=== PATIENT | female | born 2005 | race Caucasian/White ===

== ENCOUNTER 2025-05-02 18:35 | Emergency (ER) | payer MEDICAID, SELFPAY ==
[2025-05-02 18:35] VITALS: BMI 32.2
[2025-05-02 18:56] VITALS: BP 118/77; PULSE 90; RESP 18; TEMP 36.9; O2SAT 96
[2025-05-02] MEDS: DEXAMETHASONE SOD PHOS INJ 10 MG/ML VIAL IM (19:32)
[2025-05-02] MEDS: FAMOTIDINE 20 MG TABLET 40 MG PO (19:34)
[2025-05-02 20:07] LABS: Collection Type, Urine Voided
[2025-05-02 20:12] LABS: Bilirubin,Urine Negative (Negative); Blood,Urine Negative (Negative); Clarity,Urine Clear (Clear/Hazy); Color,Urine Lt-Yellow (Lt Yel-Yel); Culture Indicated,Urine Not Indicated; Glucose, Urine Negative (Negative); Ketones,Urine Negative (Negative); Leukocyte Esterase,Urine Positive (Negative); Nitrite,Urine Negative (Negative); PH,Urine 7.0 (5.0-7.0); Protein,Urine Negative (Neg - Trace); RBC,Urine 4 /hpf (0-3); Specific Gravity,Urine 1.011 (1.001-1.035); Squamous Epithelial Cell,Urine 9 /hpf (0-5); Urobilinogen,Urine Negative mg/dL (0.0-1.0); WBC,Urine 7 /hpf (0-5)
--- NOTE | 2025-05-02 20:27 | EDNOTE_ITS ---
ED Allergic Reaction RME/HPI General Chief complaint: Allergic Reaction Stated complaint: ALLERGIC RX , RAH AND ITCHING Time Seen by Provider: 05/02/25 18:38 Arrival date/time: 05/02/25 18:35 This is a case of 20-year-old female with no medical history came in in the emergency room due to generalized rash and itching today after taking ciprofloxacin for urinary tract infection only symptoms is dysuria no hematuria no abdominal pain no flank pain no fever no chills no shortness of breath no throat or facial swelling patient can speak full sentences no drooling of saliva Limitations: no limitations Related Data Previous Rx's ?Medication ?Instructions ?Recorded ibuprofen 600 mg tablet 600 mg PO Q6H #30 tabs 02/10 cephalexin 500 mg capsule 500 mg PO Q8H #30 caps 05/02 diphenhydramine HCl 25 mg capsule 25 mg PO TID PRN all ergic reaction 05/02/25 #20 caps phenazopyridine 200 mg tablet 200 mg PO TID 6 doses #6 tabs 05/02/25 (Pyridium) prednisone 20 mg tablet See Taper PO QDAY 5 days #5 tabs 05/02/25 Allergies Allergy/AdvReac Type Severity Reaction Status Date / Time No Known Allergies Allergy Verified 05/02/25 18:39 Review of Systems Review of Systems Systems Reviewed: All systems reviewed, normal except as documented Constitutional Constitutional: Reports system reviewed and no additional complaints, except as documented and Reports as per HPI ENT Ears, Nose, Mouth, and Throat: Reports system reviewed and no additional complaints, except as documented and Reports as per HPI Cardiovascular Cardiovascular: Reports system reviewed and no additional complaints, except as documented and Reports as per HPI Respiratory Respiratory: Reports system reviewed and no additional complaints, except as documented and Reports as per HPI Genitourinary Genitourinary: Reports system reviewed and no additional complaints, except as documented and Reports as per HPI Musculoskeletal Musculoskeletal: Reports system reviewed and no additional complaints, except as documented and Reports as per HPI Neurologic Neurologic: Reports system reviewed and no additional complaints, except as documented and Reports as per HPI Past Medical History Social History SMOKING STATUS: Never smoker ED Exam General Limitations: Present no limitations General appearance: Present alert, in no apparent distress and other Head Head exam: Present atraumatic, normocephalic and normal inspection Eye Eye exam: Present normal appearance, PERRL and EOMI ENT ENT exam: Present normal exam, normal oropharynx, mucous membranes moist and other (HEENT exam is normal and unremarkable no drooling of saliva no facial or throat swelling patient can speak full sentences) Neck Neck exam: Present normal inspection, full ROM and trachea midline; Absent tenderness, meningismus, lymphadenopathy or thyromegaly Chest Chest inspection: Present normal inspection and symmetric chest wall rise; Absent tenderness Respiratory Respiratory exam: Present normal lung sounds bilaterally; Absent respiratory distress, wheezes, stridor, accessory muscle use or prolonged expiratory phase Cardiovascular Cardiovascular exam: Present regular rate, normal rhythm and normal heart sounds; Absent bradycardia, tachycardia, irregular rhythm, systolic murmur or diastolic murmur Abdominal Exam Abdominal exam: Present soft, normal bowel sounds and other (No CVA tenderness); Absent distention, tenderness, guarding, rebound, rigidity, diminished bowel sounds, hyperactive bowel sounds, hypoactive bowel sounds or organomegaly Extremities Exam Extremities exam: Present normal inspection and full ROM Back Exam Back exam: Present normal inspection and full ROM Neurological Exam Neurological exam: Present alert, oriented X3, CN II-XII intact, normal gait and reflexes normal; Absent motor sensory deficit Psychiatric Psychiatric exam: Present normal affect and normal mood Skin Skin exam: Present warm, dry, intact, normal color and other (Not noted erythematous rash of face neck both upper both lower extremities abdomen back nonblanching no abscess no cellulitis) Course Quality Measures none Orders Category Date Time Status Urinalysis, C/S if Indicated Stat Lab 05/02/25 20:00 Completed Dexamethasone Inj [Decadron Inj] Med 05/02/25 19:13 Discontinued 10 mg IM X1 ONE DiphenhydrAMINE INJ [Benadryl Inj] Med 05/02/25 19:13 Discontinued 25 mg IM X1 ONE Famotidine [Pepcid] Med 05/02/25 19:13 Discontinued 40 mg PO X1 ONE cefTRIAXone [Rocephin] 1,000 mg Med 05/02/25 20:24 Ordered Lidocaine 1% Pf 5 ml [Xylocaine 1% Pf 5 ml] 2.1 ml IM X1 Vital Signs Vital signs: Vital Signs Temperature 98.4 F 05/02/25 18:56 Pulse Rate 90 05/02/25 18:56 Respiratory Rate 18 05/02/25 18:56 Blood Pressure 118/77 05/02/25 18:56 Pulse Oximetry (%) 96 05/02/25 18:56 Oxygen Delivery Method Room Air 05/02/25 18:56 Oxygen saturation is 96% in room air Allergic Reaction MDM Narrative MDM Narrative:: This is a case of 20-year-old female with no medical history came in in the emergency room due to generalized rash and itching today after taking ciprofloxacin for urinary tract infection only symptoms is dysuria no hematuria no abdominal pain no flank pain no fever no chills no shortness of breath no throat or facial swelling patient can speak full sentences no drooling of saliva physical examination patient is awake alert oriented not in distress nontoxic looking well-hydrated well-nourished patient HEENT exam is normal no drooling of saliva patient can speak full sentences no facial or throat swelling patient have generalized erythematous rash on face both upper and both lower extremities chest abdomen and back suggestive of acute allergic reaction no shortness of breath clear breath sounds patient also have dysuria abdominal exam is benign nonsurgical no guarding no rebound no rigidity no CVA tenderness bladder is nondistended nontender urinalysis showed WBC and urine suggestive of urinary tract infection patient was given ceftriaxone IM here in the emergency room and was prescribed cephalexin for UTI and Pyridium patient condition markedly improved patient was advised to stop ciprofloxacin and instead to take the cephalexin to be taken for 10 days patient will follow-up with PCP for reeval uation and to be referred to utilization specialist for allergy testing worsening symptoms recurrence or any emergent concern return precaution in the ER is advised Patient was discharged with comfortable condition walking with stable gait. Patient verbalized no further complains explained diagnosis and answered patient question. Patient is comfortable with the proposed management plan including the need to follow up with his/her primary care physician and any specialist if applicable Discussed patient for any urgent condition or worsening sx, He/She needed to go to emergency room immediately or call 911. Patient acknowledge the responsibility to follow up as instructed and to monitor her/his symptoms. For any persistence of the symptoms for more than 3-5 days return precaution advised. Discussed the result of the test and was given printed discharge instruction Patient data External records reviewed:: [facility] previous records Clinical information provided by:: patient Social determinants that could affect healthcare access:: none Patient has the following chronic illnesses:: None How is presenting disease/condition affected by chronic disease/condition?: no chronic disease Evaluation data The following diagnostics were reviewed and interpreted by me:: lab results Lab and/or radiology exams considered but not ordered:: Reviewed Interpretation Summary: Reviewed Medications / Prescriptions Medications or Prescriptions considered but not ordered:: Given Medication administrations:: Medication Administration History Ceftriaxone Sodium 1,000 mg/ (Lidocaine HCl 2.1 ml) 0 mg IM X1 ONE Stop: 05/02/25 20:25 Discontinued Medications Dexamethasone Sodium Phosphate (Dexamethasone Sod Phos Inj 10 Mg/Ml Vial) 10 mg IM X1 ONE Stop: 05/02/25 19:14 Last Admin: 05/02/25 19:32 Dose: 10 mg Documented By: OA Diphenhydramine HCl (Diphenhydramine Inj 50 Mg/Ml Vial) 25 mg IM X1 ONE Stop: 05/02/25 19:14 Last Admin: 05/02/25 19:34 Dose: 25 mg Documented By: OA Famotidine (Famotidine 20 Mg Tablet) 40 mg PO X1 ONE Stop: 05/02/25 19:14 Last Admin: 05/02/25 19:34 Dose: 40 mg Documented By: OA Given Consultations Consultation(s) initiated? (list below): No Diagnosis Differential Diagnosis allergic reaction: allergic reaction, contact dermatitis and urticaria Most likely diagnosis given after review of the tests above:: Acute allergic reaction urinary tract infection Admission Indicated Admission indicated?: not indicated Explain why admission is indicated or not indicated:: Not indicated Admission Request Was there a request for admission?: No Admission Attestation Admission request attestation: Not indicated Disposition Plan Disposition Plan: Discharge Discharge Attestation Discharge Attestation: The patient and all family members were given an opportunity to ask questions and understood the discharge instructions. Discharge instructions specifically effects, indications for sooner follow up or return to the emergency department, and the expected course of current diagnosis. Patient condition: Stable Discharge Plan Plan Patient Disposition: HOME (Self Care) Patient condition on transfer: Stable Prescriptions/Referrals Prescriptions/Med Rec: New cephalexin 500 mg capsule 500 mg PO Q8H Qty: 30 0RF phenazopyridine [Pyridium] 200 mg tablet 200 mg PO TID 0 Days Qty: 6 0RF prednisone 20 mg tablet See Taper PO QDAY 5 Days Qty: 5 0RF Taper: Prednisone Taper 20 mg DAILY for 2 Days and 0 Hour 10 mg DAILY for 2 Days and 0 Hour 5 mg DAILY for 7 Days and 0 Hour diphenhydramine HCl 25 mg capsule 25 mg PO TID PRN (Reason: allergic reaction) Qty: 20 0RF No Action ibuprofen 600 mg tablet 600 mg PO Q6H Qty: 30 0RF Referrals: Paul Jacobson MD [Primary Care Provider, Family Practice] - In 1 week Problem List Clinical Impression: Acute allergic reaction, Urinary tract infection Patient/Caregiver Discharge Instructions Education Materials: Urinary Tract Infections in Women, ED Medicine Reaction: Allergic Additional Instructions: Follow-up with your primary care physician in 2 days for reevaluation and to be referred to utilization specialist for allergy testing recurrence persistent worsening symptoms or any emergent concern call 911 or go to the nearest emergency room stop taking ciprofloxacin start taking cephalexin to be taken for 10 days increase water intake keep hydrated is advised Print Language: Salvadorean Stand Alone Forms: Denisse Award Info., Patient Portal Info Letter PA/LINTER DRIER OPERATOR Supervising Physician PA/LINTER DRIER OPERATOR Supervising Physician: Dr. Chen
== END 2025-05-02 21:35 | disposition home or self-care (01) ==
PROVIDERS: Nurse Practitioner Family; Emergency Provider Emergency Medicine; PCP Family Medicine
DX: N39.0 Urinary tract infection, site not specified (principal); L29.9 Pruritus, unspecified
CPT/HCPCS: 81001; 96372; 99282; J0696; J1100; J1200; J3490; A9270